=== PATIENT | female | born 1965 | race Caucasian/White ===

== ENCOUNTER → 2017-04-11 | Outpatient (CLI) | payer BC | END | disposition home or self-care (01) | LOC: CFH 07:27 | PROVIDERS: ATTEND Nurse Practitioner Family | DX: N12 Tubulo-interstitial nephritis, not specified as acute or chronic (principal) | CPT/HCPCS: 76770 ==

== ENCOUNTER → 2017-12-09 | Outpatient (CLI) | payer OTHER | END | disposition home or self-care (01) | LOC: CFH 16:13 | PROVIDERS: ATTEND Obstetrics & Gynecology Gynecology | DX: Z12.31 Encounter for screening mammogram for malignant neoplasm of breast (principal) | CPT/HCPCS: 77067 ==

== ENCOUNTER 2019-04-19 07:34 | Outpatient (CLI) | payer OTHER | END 2019-04-19 23:59 | disposition home or self-care (01) | LOC: RAD 07:34 | PROVIDERS: ATTEND Surgery | DX: R11.2 Nausea with vomiting, unspecified (principal); R13.10 Dysphagia, unspecified; R10.13 Epigastric pain; R05 Cough; Z98.890 Other specified postprocedural states | CPT/HCPCS: 74241 ==

== ENCOUNTER 2020-03-28 14:06 | Outpatient (CLI) | payer OTHER ==
[2020-03-28] MEDS ORDERED: GADOTERATE 10 MMOL/20 ML SYR ONE (15:42)
== END 2020-03-28 23:59 | disposition home or self-care (01) ==
LOC: RAD 14:06 → EDSTATUS 14:30 → RAD 23:59
PROVIDERS: ATTEND Nurse Practitioner Family
DX: M50.11 Cervical disc disorder with radiculopathy, high cervical region (principal); M75.51 Bursitis of right shoulder; M48.02 Spinal stenosis, cervical region
CPT/HCPCS: 72156; 73221; A9575

== ENCOUNTER → 2020-11-15 | Outpatient (CLI) | payer OTHER ==
[~2020-11-15] MED LIST: OMNIPAQUE 350 MG/ML, 100ML BOTTLE ONE
== END | disposition home or self-care (01) ==
LOC: CFH 13:35
PROVIDERS: ATTEND Registered Nurse
DX: K44.9 Diaphragmatic hernia without obstruction or gangrene (principal); I70.0 Atherosclerosis of aorta; R19.4 Change in bowel habit; R10.812 Left upper quadrant abdominal tenderness; K92.1 Melena; Z90.49 Acquired absence of other specified parts of digestive tract; Z68.29 Body mass index [BMI] 29.0-29.9, adult
CPT/HCPCS: 74177; Q9967